=== PATIENT | male | born 1995 | race Caucasian/White ===

== ENCOUNTER 2021-07-25 16:47 | Emergency (ER) | payer OTHER ==
[~2021-07-25 16:47] MED LIST: HYDROCODON-ACE1 EAC4 PO; PERCOCET 5-3251 EACH PO
== END 2021-07-25 18:37 | disposition home or self-care (01) ==
LOC: FER 16:47
DX: B34.9 Viral infection, unspecified (principal)
CPT/HCPCS: 99283